=== PATIENT | male | born 1975 | race Two or more races ===

== ENCOUNTER 2021-10-14 16:23 | Emergency (ER) | payer MEDICAID, OTHER ==
[~2021-10-14] VITALS: Ht 175.3 cm; Wt 113.4 kg
[2021-10-14 16:35] VITALS: BP 156/79
[2021-10-14] MEDS ORDERED: HYDROcodone-ACET 10/325MG TAB PO ONE (21:15)
== END 2021-10-14 22:46 | disposition home or self-care (01) ==
LOC: ER 16:23
DX: S61.412A Laceration without foreign body of left hand, initial encounter (principal); W22.8XXA Striking against or struck by other objects, initial encounter; Y93.89 Activity, other specified; Y92.89 Other specified places as the place of occurrence of the external cause; Y99.8 Other external cause status
CPT/HCPCS: 12001; 73130

== ENCOUNTER 2025-07-10 10:55 | Emergency (ER) | payer SELFPAY ==
[~2025-07-10] VITALS: Ht 175.3 cm; Wt 110.1 kg
[~2025-07-10 10:55] MED LIST: CYCL-839 PO; NAP500T PO
[2025-07-10 11:20] VITALS: BP 139/93; PULSE 74; RESP 16; TEMP 98.6; O2SAT 100
--- NOTE | 2025-07-10 11:29 | ED.PDOC ---
Musculoskeletal HPI Comments A 49 YEAR OLD MALE PRESENTS TO THE ED WITH COMPLAINT OF RIGHT HAND PAIN. PATIENT STATES HE INJURED HIS RIGHT HAND DORSAL SURFACE 15 DAYS PRIOR. PATIENT HAS BEEN HAVING INCREASED PAIN BY HIS 3RD AND 4TH FINGER ON DORSAL SURFACE AND CAME TO THE ED FOR EVALUATION. PATIENT DENIES FEVER, CHILLS, SHORTNESS OF BREATH, CHEST PAIN, ABDOMINAL PAIN, NAUSEA, VOMITING, HEADACHE, OR OTHER COMPLAINTS. NO OTHER SYMPTOMS OR MODIFYING FACTORS AT THIS TIME. PATIENT IS ALERT, ORIENTED X 4, AND HAS STEADY GAIT. Chief Complaint: Upper Extremity Time Seen by MD: 11:26 Primary Care Provider: NONE Reviewed Notes: Nurses Notes, Medications, Allergies Allergies: Coded Allergies: NO KNOWN ALLERGIES (Unverified , 10/14/21) Home Meds Active Scripts Ibuprofen (Ibuprofen) 800 Mg Tab, 1 TAB PO TID, #30 TAB Prov:BENSON BUENROSTRO 07/10/25 Cyclobenzaprine Hcl (Cyclobenzaprine Hcl) 10 Mg Tab, 10 MG PO TID PRN, #21 TAB Prov:CUATE MARCUS MD 12/01/23 Naproxen (NAPROSYN TABLET) 500 Mg Tb, 1 TAB PO BID, #20 TAB 1 Refill Prov:CUATE MARCUS MD 12/01/23 Information Source: Patient Mode of Arrival: Ambulatory Brought in by: SELF Location: Right Extremity Location: Hand Timing: Weeks Able to Move Extremity: Yes Bear Weight: Limited Pain: Moderate Hand Dominance: Right Circumstances: Work Related, Playing Onset of Symptoms: After Trauma Symptoms: Swelling, Pain DVT Risk Factors: NONE Last Tetanus: UTD Associated signs and symptoms: Hand pain Past Medical History PAST MEDICAL HISTORY: Denies Surgical History: Denies all surgeries Family History Family History: Reviewed,noncontributory to illness, No family hx of Cancer, No family hx of DM, No family hx of Heart ellen, No family hx of HTN, No family hx ofKidney ellen, No family hx of Liver ellen, No family hx of Lung ellen, No family hx of Stroke Social History Smoker: Non-Smoker Alcohol: Denies ETOH Use Drugs: Denies Drug Use Lives In: Home Constitutional: denies: chills, diaphoresis, fatigue, fever, malaise, sweats, weakness, others EENTM: denies: blurred vision, double vision, ear bleeding, ear discharge, ear drainage, ear pain, ear ringing, eye pain, eye redness, hearing loss, mouth michelle n, mouth swelling, nasal discharge, nose bleeding, nose congestion, nose pain, photophobia, tearing, throat pain, throat swelling, voice changes, others Respiratory: denies: cough, hemoptysis, orthopnea, SOB at rest, shortness of breath, SOB with excertion, stridor, wheezing, others Cardiovascular: denies: chest pain, dizzy spells, diaphoresis, Dyspnea on exertion, edema, irregular heart beat, left arm pain, lightheadedness, palpitations, PND, syncope, others Gastrointestinal: denies: abdomen distended, abdominal pain, blood streaked bowels, constipated, diarrhea, dysphagia, difficulty swallowing, hematemesis, melena, nausea, poor appetite, poor fluid intake, rectal bleeding, rectal pain, vomiting, others Genitourinary: denies: burning, dysuria, flank pain, frequency, hematuria, incontinence, penile discharge, penile sore, pain, testicle pain, testicle swelling, urgency, others Neurological: denies: dizziness, fainting, headache, left sided numbness, left sided weakness, numbness, paresthesia, pre-existing deficit, right sided numbness, right sided weakness, seizure, speech problems, tingling, tremors, weakness, others Musculoskeletal: reports: joint pain (RIGHT HAND DORSAL SURFACE), joint swelling (RIGHT HAND DORSAL SURFACE); denies: back pain, gout, muscle pain, muscle stiffness, neck pain, others Integumetry: denies: bruises, change in color, change in hair/nails, dryness, laceration, lesions, lumps, rash, wounds, others Allergic/Immunocompromised: denies: Difficulty Healing, Frequent Infections, Hives, Itching, others Hematologic/Lymphatic: denies: anemia, blood clots, easy bleeding, easy bruising, swollen glands, others Endocrine: denies: excessive hunger, excessive sweating, excessive thirst, excessive urination, flushing, intolerance to cold, intolerance to heat, unexplained weight gain, unexplained weight loss, others Psychiatric: denies: anxiety, bipolar disorder, depression, hopeless, panic disorder, schizophrenia, sleepless, suicidal, others All Other Systems: Reviewed and Negative Physical Exam General Appearance: No Apparent Distress, Obese HEENT: Normal ENT Inspection, PERRL/EOMI, Pharynx Normal, TMs Normal Neck: Full Range of Motion, Non-Tender, Normal, Normal Inspection Respiratory: Chest Non-Tender, Lungs Clear, No Accessory Muscle Use, No Respiratory Distress, Normal Breath Sounds Cardiovascular: No Edema, No JVD, No Murmur, No Gallop, Normal Peripheral Pulses, Regular Rate/Rhythm Breast Exam: Deferred Gastrointestinal: No Organomegaly, Non Tender, No Pulsatile Mass, Normal Bowel Sounds, Soft Genitalia: Deferred Pelvic: Normal External Exam Rectal: Deferred Extremities: Decreased range of motion, No calf tenderness, Normal capillary refill, No pedal edema, Tender (BONY TENDERNESS AND SWELLING ON RIGHT 5TH FINGER, NO DEFORMITY. ) Musculoskeletal : Apperance: Normal Neurologic: Alert, entry manager II-XII nml as Tested, No Motor Deficits, Normal Affect, Normal Mood, No Sensory Deficits Cerebellar Function: Normal Reflexes: Normal Skin: Dry, Normal Color, Warm Peripheral Pulses: 2+ carotid (R), 2+ carotid (L), 2+ Radial (R), 2+ Radial (L) Lymphatic: No Adenopathy Was a procedure done? Was a procedure done?: No Differential Diagnosis EXT Differential Diagnosis: Fracture, Sprain, Strain, Neurovascular injury, Bursitis X-Ray, Labs, Meds, VS Vital Signs Date Time Temp Pulse Resp B/P (MAP) Pulse Ox O2 Delivery O2 Flow Rate FiO2 07/10/25 11:20 74 16 100 Room Air 07/10/25 11:20 98.6 74 16 139/93 (108) 100 98.6 07/10/25 10:56 97.6 75 18 157/78 96 97.6 PATIENT: RAGHAVENDRA VERGARAT: [id number]: [id number] : 1975 LOC: ER ROOM / BED: / AGE / SEX: 49 / M ADM STATUS: REG ER SERVICE 1100 ORDERING PHYSICIAN: BENSON BUENROSTRO PROCEDURE(s): RHAN - R HAND 3 VIEW XRAY REASON: INJURY ORDER NUMBER(s): [id number], ACCESSION NUMBER(s): [id number] CLINICAL INDICATION: INJURY TECHNIQUE: XY R HAND 3 VIEW XRAY Comparison: L HAND COMPLETE XRAY on DOS: 10/14/21 FINDINGS/IMPRESSION: : Comminuted and displaced fracture of the proximal 5th phalanx. ATED BY: SAJAN LUI MD DICTATED DATE/TIME: 07/10/256 SIGNED BY: SAJAN LUI MD SIGNED DATE/TIME: 07/10/256 CC: X-Ray, Labs, Meds, VS Comment COURSE: EXTERNAL MEDICAL RECORDS REVIEWED: [NONE] INDEPENDENT HISTORIANS: [NONE] SOCIAL DETERMINANTS OF HEALTH: [NONE] LABS ORDERED: NONE REVIEWED AND INTERPRETED RESULTS: NONE IMAGING ORDERED: RIGHT HAND X-RAY TREATMENTS ORDERED: NONE PROCEDURES PERFORMED: NONE CRITICAL CARE TIME: NONE I HAVE DISCUSSED THE PATIENT WITH THE ATTENDING PHYSICIAN DR. BRIAN, AND HE AGREES WITH THE PATIENT'S PLAN OF CARE AND DISPOSITION. BASED ON HISTORY OF PRESENT ILLNESS, AND PHYSICAL EXAM, PATIENT WILL BE DISCHARGED HOME. DISCUSSED PLAN FOR DISCHARGE HOME WITH RX [MOTRIN 800MG]. MEDICATION WARNINGS GIVEN. SHARED DECISION MAKING: DISCUSSED WITH PATIENT THAT THEIR WORKUP WAS NORMAL. PATIENT INSTRUCTED TO FOLLOW UP WITH PRIMARY CARE PROVIDER IN 1-2 DAYS FOR RE- EVALUATION OF SYMPTOMS. PATIENT VERBALIZES UNDERSTANDING TO RETURN TO ED FOR NEW OR WORSENING SYMPTOMS OR IF FOLLOW UP WITH PCP CANNOT BE OBTAINED. PATIENT FEELS COMFORTABLE GOING HOME AT THIS TIME. ALL QUESTIONS ADDRESSED AT TIME OF DISCHARGE. Time of 1ST Reevaluation: 11:36 Reevaluation 1ST: Improved Patient Education/Counseling: Diagnosis, Treatment, Need For Follow Up Family Education/Counseling: Diagnosis, Treatment, No Family Present Medical Screening: No EMC Exist At This Time Departure 1 Departure Time of Disposition: 11:45 Impression: Primary Impression: Fracture of proximal phalanx of right hand Qualified Codes: S62.619A - Displaced fracture of proximal phalanx of unspecified finger, initial encounter for closed fracture Disposition: 01 HOME / SELF CARE / HOMELESS Condition: Stable Additional Instructions: INSTRUCTIONS: FOLLOW-UP WITH [facility] IN 1 TO 2 DAYS. TAKE MEDICATIONS PRESCRIBED. RETURN TO ED FOR ANY NEW OR WORSENING SYMPTOMS. e-Prescriptions Ibuprofen (Ibuprofen) 800 Mg Tab 1 TAB PO TID, #30 TAB Prov: BENSON BUENROSTRO 07/10/25 Discharged With: Self Critical Care Note Critical Care Time?: No Stability Stability form required: No Heart Score Heart Score: Heart Score Response (Comments) Value History N/A 0 EKG N/A 0 Age N/A 0 Risk Factors N/A 0 Troponin N/A 0 Total 0 I personally scribed for BENSON BUENROSTRO ([email or web address]) on 07/10/25 at 11:29. Electronically submitted by Prince Perez ([email or web address]). BENSON BUENROSTRO Jul 10, 2025 11:29
[2025-07-10] MEDS ORDERED: IBUP-1456 PO (11:32)
--- NOTE | 2025-07-10 11:38 | DVH ---
CLINICAL INDICATION: INJURY TECHNIQUE: XY R HAND 3 VIEW XRAY Comparison: L HAND COMPLETE XRAY on DOS: 10/14/21 FINDINGS/IMPRESSION: : Comminuted and displaced fracture of the proximal 5th phalanx.
== END 2025-07-10 11:43 | disposition home or self-care (01) ==
LOC: ER 10:55
DX: S62.616A Displaced fracture of proximal phalanx of right little finger, initial encounter for closed fracture (principal); Z79.1 Long term (current) use of non-steroidal anti-inflammatories (NSAID); X58.XXXA Exposure to other specified factors, initial encounter; Y93.89 Activity, other specified; Y92.89 Other specified places as the place of occurrence of the external cause; Y99.8 Other external cause status
CPT/HCPCS: 73130